=== PATIENT | male | born 1990 | race Caucasian/White ===

== ENCOUNTER 2016-08-14 15:31 | Inpatient (IN) | payer MEDICAID, OTHER ==
[~2016-08-14] VITALS: Ht 175.3 cm; Wt 69.8 kg
[~2016-08-14 15:31] MED LIST: ADDE10CA PO; ADDE10TA PO; ADDE20CA PO; ONDANSETRON HCL 4 MG/2 ML VIAL IV PUSH ONE; PROPOFOL 200 MG/20 ML AMP IV ONE; SERO300T2 PO
[2016-08-14 15:39] VITALS: BP 107/57; PULSE 75; RESP 19; TEMP 98.3; O2SAT 99
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
[2016-08-14 16:00] LABS: AUTOMATED NEUTROPHIL # 3.1 TH/MM3 (1.8-7.7); BASOPHIL % 0.6 % (0.0-2.0); EOSINOPHIL # 0.3 TH/MM3 (0-0.4); EOSINOPHIL % 4.1 % (0.0-4.0); HEMATOCRIT 34.6 % (39.0-51.0); HEMO FLAGS DIFF FINAL; LYMPH % 39.7 % (9.0-44.0); LYMPHOCYTE # 2.4 TH/MM3 (1.0-4.8); MEAN CELL VOLUME 89.4 FL (80.0-100.0); MEAN CORPUSCULAR HEMOGLOBIN 30.3 PG (27.0-34.0); MEAN CORPUSCULAR HGB CONC 33.8 % (32.0-36.0); MONO % 5.1 % (0.0-8.0); NEUT % 50.5 % (16.0-70.0); PLATELET COUNT 270 TH/MM3 (150-450); RED BLOOD COUNT 3.87 MIL/MM3 (4.50-5.90); RED CELL DISTRIBUTION WIDTH 12.7 % (11.6-17.2); WHITE BLOOD COUNT 6.1 TH/MM3 (4.0-11.0)
[2016-08-14] MEDS ORDERED: TETANUS/DIPHTHERIA TOXOID ADULT 0.5 ML VIAL IM ONE (16:00)
[2016-08-14 16:15] LABS: ANION GAP 7 MEQ/L (5-15); AST (GOT) 9 U/L (15-37); BLOOD UREA NITROGEN 12 MG/DL (7-18); CHLORIDE 109 MEQ/L (98-107); GLOMERULAR FILTRATION RATE 106 ML/MIN (>89); POTASSIUM 3.6 MEQ/L (3.5-5.1); SODIUM (NA) 142 MEQ/L (136-145)
[2016-08-14] MEDS ORDERED: LIDOCAINE 1%/EPINEPHrine 1:100,000 SOLN 20 ML VIAL INFIL ONE (16:15)
[2016-08-14 16:18] LABS: ALKALINE PHOSPHATASE 72 U/L (45-117); ALT (GPT) 12 U/L (12-78); TOTAL BILIRUBIN ADULT 0.5 MG/DL (0.2-1.0)
--- NOTE | 2016-08-14 16:49 | RADRPT ---
EXAM DATE/TIME: 08/14/2016 16:03 [place] COMPARISON: No previous studies available for comparison. INDICATIONS : Left wrist laceration. Patient cut his wrist on a metal lamp. MEDICAL HISTORY : None. SURGICAL HISTORY : None. ENCOUNTER: Initial ACUITY: 1 day PAIN SCORE: 10/10 LOCATION: Left wrist. FINDINGS: Two view examination of the left wrist demonstrates no acute bony abnormality. No radiopaque foreign body. Laceration present just proximal to wrist joint. CONCLUSION: 1. Soft tissue laceration. No acute bony abnormality. Humberto Mejia MD on August 14, 2016 at 16:47 Board Certified Radiologist. This report was verified electronically.
[2016-08-14 17:43] LABS: APTT (PATIENT) 23.3 SEC (24.3-30.1); INTERNATIONAL NORMALIZED RATIO 0.9 RATIO
[2016-08-14] MEDS ORDERED: cefTRIAXone INJ 1,000 MG in SODIUM CHLORIDE 0.9% INJ 100 ML IV ONE (17:45)
[2016-08-14 17:49] VITALS: BP_SYST 57; PULSE 69
[2016-08-14] MEDS ORDERED: SODIUM CHLOR 0.45% 1000 ML INJ 1,000 ML IV SCH (18:04)
[2016-08-14] MEDS ORDERED: MORPHINE SULFATE 4 MG/ML INJ IV PUSH PRN (18:15)
[2016-08-14] MEDS ORDERED: ACETAMINOPHEN/HYDROcodone 325 MG/5 MG TAB PO PRN (18:15)
[2016-08-14] MEDS ORDERED: NALOXONE HCL 0.4 MG/ML AMP IV PRN (18:15)
[2016-08-14] MEDS ORDERED: SODIUM CHLORIDE 0.9% FLUSH 5 ML FLUSH FLUSH PRN (18:15)
[2016-08-14] MEDS ORDERED: ONDANSETRON HCL 4 MG/2 ML VIAL IVP PRN (18:15)
[2016-08-14] MEDS ORDERED: HYDROmorphone HCL PF 2 MG/ML VIAL ONE (18:22)
[2016-08-14] MEDS ORDERED: METOCLOPRAMIDE HCL 10 MG/2 ML VIAL ONE (18:24)
[2016-08-14] MEDS ORDERED: HEPARIN SODIUM - IV 10,000 UNITS/10 ML VIAL ONE (18:32)
[2016-08-14] MEDS ORDERED: ceFAZolin INJ 1,000 MG VIAL ONE (18:32)
[2016-08-14] MEDS ORDERED: GELFOAM SIZE 100 ONE (18:32)
[2016-08-14] MEDS ORDERED: THROMBIN (TOPICAL) 5,000 UNIT VIAL ONE (18:32)
[2016-08-14] MEDS ORDERED: HEPARIN SODIUM - SQ 10,000 UNITS/ML VIAL ONE (18:32)
[2016-08-14] MEDS ORDERED: NITROGLYCERIN 1000 MCG/5 ML VIAL I-CORONARY ONE (18:43)
[2016-08-14] MEDS ORDERED: fentaNYL CITRATE 250 MCG/5 ML AMP ONE (19:52)
[2016-08-14] MEDS ORDERED: MIDAZOLAM HCL 2 MG/2 ML VIAL ONE (19:52)
--- NOTE | 2016-08-14 19:57 | MB ---
cc: SABINA WOODS MD DATE OF CONSULTATION 08/14/16 This is a gentleman who is 26 years old who presented to the emergency room with a self-inflicted wound to his left radial artery. A compressive dressing was put on by Dr. Dempsey in the emergency room and I was asked to see him. Evaluation today reveals a compressive dressing intact. The patient is lying in bed and comfortable. He has no neurological deficits in his hand, either to sensation or muscle strength. I have discussed the case with the patient and with Dr. Dempsey. He will be taken to the operating room emergently for repair of a lacerated left radial artery. Sabina Woods MD MPH/SA /7:42 PM /7:53 PM
[2016-08-14] MEDS ORDERED: SODIUM CHLORIDE 0.9% FLUSH 5 ML FLUSH FLUSH SCH (21:00)
[2016-08-14 21:18] VITALS: BP 99/52; PULSE 67; RESP 16; TEMP 96.5; O2SAT 100
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
--- NOTE | 2016-08-15 08:35 | MP ---
cc: LUÍS WOODS MD DATE OF SURGERY: 08/14/2016 PREOPERATIVE DIAGNOSIS: Lacerated radial artery, left POSTOPERATIVE DIAGNOSIS: Lacerated radial artery, left OPERATION: Repair lacerated left radial artery. SURGEON: Gage Woods MD. DISCOVERY GUIDE: PRAVEENA Hinkle. ANESTHESIA: General endotracheal anesthesia POSTOPERATIVE CONDITION: Stable. WHAT WAS DONE: The patient was taken to the operating room emergently. General endotracheal anesthesia was introduced. The left upper extremity was prepped and draped in sterile fashion. When this was accomplished time-out was performed. The site was reconfirmed. An incision was then made encompassing the incision to damage the radial artery. A very large hematoma was removed. Search was then made and the radial artery was eventually found. The damage done to the radial artery was then trimmed using a [place] scissors. The radial artery was freed up proximally and distally and there was noted to be excellent flow off the radial artery proximally and distally. An end-to-end anastomosis was then carried out after cobra heading both of the radial artery pieces. This was done with interrupted 6-0 Prolene. Prior to final closure all vessels were back bled, forward bled, and irrigated with heparinized saline solution. Nitroglycerin was used to prevent spasm and a 1 and 1.5 probe were used to dilate the artery. There was noted be excellent flow with the Doppler postoperatively and a palpable pulse in the radial artery distally. The wound was then closed with interrupted 3-0 nylon. A correct sponge, instrument, needle count was obtained and the patient was awakened, taken to the recovery room in satisfactory condition. Luís Woods MD MPH/LOIS /7:43 PM /8:28 AM
== END 2016-08-14 22:55 | DRG 909 ==
LOC: NEPC 15:31 → NEDA 17:54 → N06A 20:57
PROVIDERS: ADMIT Family Medicine; ATTEND Family Medicine
PROC: 03QC0ZZ Repair Left Radial Artery, Open Approach (ICD-10-PCS; principal; 2016-08-14 18:26)
DX: S65.112A Laceration of radial artery at wrist and hand level of left arm, initial encounter (principal); F31.9 Bipolar disorder, unspecified; F90.9 Attention-deficit hyperactivity disorder, unspecified type; Z91.5 Personal history of self-harm; X78.9XXA Intentional self-harm by unspecified sharp object, initial encounter; Y93.9 Activity, unspecified; Y92.9 Unspecified place or not applicable; Z72.0 Tobacco use
CPT/HCPCS: 73100; 80053; 85025; 85610; 85730; 90471; 90714; 96374; J0690; J0696; J1170; J1644; J2250; J2405; J2765; J3010

== ENCOUNTER 2016-08-14 22:00 | Inpatient (IN) | payer MEDICAID, OTHER ==
[~2016-08-14 22:00] MED LIST changes: -ONDANSETRON HCL 4 MG/2 ML VIAL IV PUSH ONE; -PROPOFOL 200 MG/20 ML AMP IV ONE
[2016-08-14 22:30] VITALS: BP 109/56; PULSE 65; RESP 18
[2016-08-14] MEDS: ACETAMINOPHEN/HYDROcodone 325 MG/5 MG TAB PO PRN (23:29)
[2016-08-14] MEDS ORDERED: ACETAMINOPHEN 325 MG TAB PO PRN (23:30)
[2016-08-14] MEDS ORDERED: MAGNESIUM HYDROXIDE SUSP 30 ML CUP PO PRN (23:30)
[2016-08-14] MEDS ORDERED: ALUMINUM/MAGNESIUM/SIMETH 30 ML CUP PO PRN (23:30)
[2016-08-14] MEDS ORDERED: diphenhydrAMINE HCL 50 MG/ML VIAL IM PRN (23:45)
[2016-08-14] MEDS ORDERED: hydrOXYzine HCL 50 MG TAB PO PRN (23:45)
[2016-08-14] MEDS ORDERED: diphenhydrAMINE HCL 50 MG CAP PO PRN (23:45)
[2016-08-15 05:49] VITALS: BP 107/57; PULSE 59; RESP 20; TEMP 98; O2SAT 97
[2016-08-15] MEDS: ACETAMINOPHEN/HYDROcodone 325 MG/5 MG TAB PO PRN (06:03)
[2016-08-15 08:46] VITALS: BP 107/57; PULSE 59; RESP 20; TEMP 98; O2SAT 97
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
[2016-08-15] MEDS ORDERED: NICOTINE 21 MG/24 HR PATCH T-DERMAL SCH (09:00)
[2016-08-15] MEDS ORDERED: REMOVE OLD NICOTINE PATCH T-DERMAL SCH (21:00)
== END 2016-08-15 10:05 | disposition home or self-care (01) | DRG 882 ==
LOC: H4EA 22:00
PROVIDERS: ADMIT Psychiatry & Neurology Psychiatry; ATTEND Psychiatry & Neurology Psychiatry
DX: F43.25 Adjustment disorder with mixed disturbance of emotions and conduct (principal); F90.9 Attention-deficit hyperactivity disorder, unspecified type

== ENCOUNTER 2017-08-25 11:08 | Emergency (ER) | payer MEDICAID, OTHER ==
[~2017-08-25] VITALS: Ht 175.3 cm; Wt 71.2 kg
[2017-08-25 11:12] VITALS: BP 126/71; PULSE 109; RESP 16; TEMP 98.7; O2SAT 97
--- NOTE | 2017-08-25 12:02 | PD ---
HPI Chief Complaint: Skin Problem Time Seen by Provider: 11:17 Travel History International Travel<30 days: No Contact w/Intl Traveler<30days: No Traveled to known affect area: No History of Present Illness HPI This is a 27-year-old male here with possible abscess to the right gluteal area 3 days. Patient reports he was possibly bit by an insect. He denies fever or chills. Denies history of IV drug use. The area has become increasingly more tender and causing discomfort when close rub against it. No alleviating factors. Symptoms severity is mild to moderate. PFSH Past Medical History ADHD: Yes Arthritis: No Bipolar Disorder: Yes Anxiety: Yes Depression: No Heart Rhythm Problems: No Cancer: No Cardiovascular Problems: No High Cholesterol: No Chest Pain: No Congestive Heart Failure: No Cerebrovascular Accident: No Developmental Delay: No Diabetes: No Diminished Hearing: No Endocrine: No Genitourinary: No Immune Disorder: No Musculoskeletal: No Neurologic: No Psychiatric: Yes (ADHD and bi polar) Reproductive: No Respiratory: No Immunizations Current: Yes Migraines: No Seizures: No Thyroid Disease: No Ulcer: No Past Surgical History Abdominal Surgery: No Appendectomy: No Cardiac Surgery: No Cholecystectomy: No Ear Surgery: Yes (TUBES IN EARS) Endocrine Surgery: No Eye Surgery: Yes Genitourinary Surgery: No Gynecologic Surgery: No Oral Surgery: No Thoracic Surgery: No Tonsillectomy: Yes (AND ADNOIDS) Tympanostomy Tube: Yes Other Surgery: No Social History Alcohol Use: Yes (LAST NIGHT) Tobacco Use: Yes Substance Use: Yes (poly substances- too many states patient per history report ) Allergies-Medications (Allergen,Severity, Reaction): Coded Allergies: No Known Allergies (Verified Adverse Reaction, Unknown, 08/25/17) Reported Meds & Prescriptions Reported Meds & Active Scripts Active No Active Prescriptions or Reported Medications Review of Systems Except as stated in HPI: all other systems reviewed are Neg General / Constitutional: No: Fever Physical Exam Narrative GENERAL: Alert and well-appearing 27 old male SKIN: Small pustule with surrounding erythema to the right mid gluteal. The area is mildly indurated without fluctuance. The pustule was unroofed and draining small amount of purulent drainage. HEAD: Normocephalic. EYES: No scleral icterus. No injection or drainage. NECK: Supple CARDIOVASCULAR: Regular rate and rhythm. No murmur RESPIRATORY: Breath sounds equal bilaterally. No accessory muscle use. GASTROINTESTINAL: Abdomen soft, non-tender, nondistended. MUSCULOSKELETAL: No cyanosis, or edema. BACK: Nontender without obvious deformity. No CVA tenderness. Data Data Last Documented VS Vital Signs Date Time Temp Pulse Resp B/P (MAP) Pulse Ox O2 Delivery O2 Flow Rate FiO2 08/25/17 11:12 98.7 109 16 126/71 (89) 97 MDM Medical Decision Making Medical Screen Exam Complete: Yes Emergency Medical Condition: Yes Differential Diagnosis Abscess, cellulitis, folliculitis Narrative Course 27-year-old male here with a small abscess to his right gluteal area. The area has a central pustule which was easily unroofed and expressed small amount of purulent drainage. He is nontoxic appearing. He'll be put on Bactrim instructed to apply warm compresses several times per day. Diagnosis Primary Impression: Abscess Referrals: Primary Care Physician Additional Instructions: Warm compresses several times per day. Antibiotics as directed. Scripts Sulfamethoxazole-Trimethoprim (Bactrim DS) 800-160 Mg Tab 1 TAB PO BID for Infection, #20 TAB 0 Refills Prov: Jane Hannon 08/25/17 Disposition: 01 DISCHARGE HOME Condition: Stable Jane Hannon Aug 25, 2017 12:02
[2017-08-25] MEDS ORDERED: BACT800T5 PO (12:09)
== END 2017-08-25 12:15 | disposition home or self-care (01) ==
LOC: PHEFT 11:08
DX: R10.9 Unspecified abdominal pain (principal); R50.9 Fever, unspecified; R11.2 Nausea with vomiting, unspecified; Z88.0 Allergy status to penicillin
CPT/HCPCS: 99283

== ENCOUNTER 2017-10-09 23:56 | Emergency (ER) | payer SELFPAY ==
[~2017-10-09] VITALS: Ht 175.3 cm; Wt 73.0 kg
[~2017-10-09 23:56] MED LIST changes: -ADDE10CA PO; -ADDE10TA PO; -ADDE20CA PO; +BACT800T5 PO; -SERO300T2 PO
[2017-10-10 00:11] VITALS: BP 108/60; PULSE 98; RESP 18; TEMP 98.1; O2SAT 99
[2017-10-10] MEDS ORDERED: LIDOCAINE 1%/EPINEPHrine 1:100,000 SOLN 20 ML VIAL INFIL ONE (00:30)
[2017-10-10] MEDS ORDERED: LIDOCAINE 1%/EPINEPHrine 1:100,000 SOLN 30 ML VIAL ONE (00:31)
[2017-10-10] MEDS ORDERED: DOXY100C PO (01:21)
--- NOTE | 2017-10-10 01:22 | PD ---
HPI . Skin lesion Chief Complaint: Skin Problem Time Seen by Provider: 00:27 Travel History International Travel<30 days: No Contact w/Intl Traveler<30days: No Traveled to known affect area: No History of Present Illness HPI This patient presents with an abscess on his right forearm which he states has been present for 4 days. It is getting progressively worse. He states that it did drain some today. He has not run any fever. Symptoms are moderate with no modifying factors. PFSH Past Medical History ADHD: Yes Arthritis: No Bipolar Disorder: Yes Anxiety: Yes Depression: No Heart Rhythm Problems: No Cancer: No Cardiovascular Problems: No High Cholesterol: No Chest Pain: No Congestive Heart Failure: No Cerebrovascular Accident: No Developmental Delay: No Diabetes: No Diminished Hearing: No Endocrine: No Genitourinary: No Immune Disorder: No Musculoskeletal: No Neurologic: No Psychiatric: Yes (ADHD and bi polar) Reproductive: No Respiratory: No Immunizations Current: Yes Migraines: No Seizures: No Thyroid Disease: No Ulcer: No Tetanus Vaccination: < 5 Years Influenza Vaccination: No Past Surgical History Abdominal Surgery: No Appendectomy: No Cardiac Surgery: No Cholecystectomy: No Ear Surgery: Yes (TUBES IN EARS) Endocrine Surgery: No Eye Surgery: Yes Genitourinary Surgery: No Gynecologic Surgery: No Oral Surgery: No Thoracic Surgery: No Tonsillectomy: Yes (AND ADNOIDS) Tympanostomy Tube: Yes Other Surgery: No Social History Alcohol Use: Yes Tobacco Use: No Substance Use: Yes (poly substances- too many states patient per history report ) Allergies-Medications (Allergen,Severity, Reaction): Coded Allergies: No Known Allergies (Verified Adverse Reaction, Unknown, 10/10/17) Reported Meds & Prescriptions Reported Meds & Active Scripts Active Doxycycline Hyclate 100 Mg Cap 100 Mg PO BID Bactrim DS (Sulfamethoxazole-Trimethoprim) 800-160 Mg Tab 1 Tab PO BID Review of Systems Except as stated in HPI: all other systems reviewed are Neg General / Constitutional: No: Fever, Chills Skin: Positive Lesions Physical Exam Narrative GENERAL: Awake and alert and in no acute distress. SKIN: Warm and dry. Large abscess on the right forearm with fluctuance. HEAD: Normocephalic/atraumatic. EYES: Pupils are equal. Extraocular movements are intact. NECK: Normal range of motion. CARDIOVASCULAR: Regular rate and rhythm. RESPIRATORY: Nonlabored respirations. MUSCULOSKELETAL: Atraumatic. NEUROLOGICAL: Nonfocal. PSYCHIATRIC: Appropriate mood and affect. Data Data Last Documented VS Vital Signs Date Time Temp Pulse Resp B/P (MAP) Pulse Ox O2 Delivery O2 Flow Rate FiO2 10/10/17 00:11 98.1 98 18 108/60 (76) 99 Orders Orders Lidocai-Epi 1%-1:100,000 Inj (Xylocaine- (10/10/17 00:30) Lidocai-Epi 1%-1:100,000 Inj (Xylocaine- (10/10/17 00:31) MDM Medical Decision Making Medical Screen Exam Complete: Yes Emergency Medical Condition: Yes Medical Record Reviewed: Yes (This patient was seen here on August 25 with an abscess in the gluteal area. It was a very small abscess. It was unroofed and drained easily. He was discharged with prescription for Bactrim) Differential Diagnosis My differential diagnosis closed but is not limited to abscess, cyst, lipoma Narrative Course This patient presents with an abscess on his right forearm. It will be drained. This patient is not cooperating for I&D. He will probably leave [place]. He has recently been on Bactrim for another abscess. I will give him a prescription for doxycycline. His girlfriend is trying to talk with him about allowing the I &D. Diagnosis Primary Impression: Abscess Med/Other Pt SpecificInfo: Prescription(s) given Scripts Doxycycline Hyclate (Doxycycline Hyclate) 100 Mg Cap 100 MG PO BID for Infection, #20 CAP 0 Refills Prov: Tika Vera MD 10/10/17 Disposition: 07 AGAINST MEDICAL ADVICE Tika Vera MD Oct 10, 2017 01:22
== END 2017-10-10 01:30 | disposition left against medical advice (07) ==
LOC: NEPE 23:56
DX: L02.413 Cutaneous abscess of right upper limb (principal); F90.9 Attention-deficit hyperactivity disorder, unspecified type; F41.9 Anxiety disorder, unspecified; F31.9 Bipolar disorder, unspecified; Z53.20 Procedure and treatment not carried out because of patient's decision for unspecified reasons
CPT/HCPCS: 99283

== ENCOUNTER 2017-12-13 23:09 | Emergency (ER) | payer SELFPAY ==
[~2017-12-13 23:09] MED LIST changes: +DOXY100C PO
[2017-12-13 23:18] VITALS: BP 124/64; PULSE 87; RESP 16; TEMP 98.6; O2SAT 95
[2017-12-13 23:48] VITALS: BP 106/56; PULSE 102; RESP 19; O2SAT 95
--- NOTE | 2017-12-13 23:53 | PD ---
HPI Chief Complaint: Alcohol/Drug Intoxication Time Seen by Provider: 23:43 Travel History International Travel<30 days: No Contact w/Intl Traveler<30days: No Traveled to known affect area: No History of Present Illness HPI 27-year-old male presents via EMS for evaluation of drug use. Reportedly the patient was injected methamphetamines today. He was found laying down in a [employer] parking lot. His current complaint is homelessness. Symptom onset unknown. Symptoms are moderate, aggravated by lack of housing and drug use with no alleviating factors. He denies any injuries. He denies any other drug use. He has no other complaints at this time. PFSH Past Medical History ADHD: Yes Arthritis: No Bipolar Disorder: Yes Anxiety: Yes Depression: No Heart Rhythm Problems: No Cancer: No Cardiovascular Problems: No High Cholesterol: No Chest Pain: No Congestive Heart Failure: No Cerebrovascular Accident: No Developmental Delay: No Diabetes: No Diminished Hearing: No Endocrine: No Gastrointestinal Disorders: No Genitourinary: No Hypertension: No Immune Disorder: No Musculoskeletal: No Neurologic: No Psychiatric: Yes (ADHD and bi polar) Reproductive: No Respiratory: No Immunizations Current: Yes Migraines: No Seizures: No Thyroid Disease: No Ulcer: No Past Surgical History Abdominal Surgery: No Appendectomy: No Cardiac Surgery: No Cholecystectomy: No Ear Surgery: Yes (TUBES IN EARS) Endocrine Surgery: No Eye Surgery: Yes Genitourinary Surgery: No Gynecologic Surgery: No Neurologic Surgery: No Oral Surgery: No Thoracic Surgery: No Tonsillectomy: Yes (ADENOIDECTOMY) Tympanostomy Tube: Yes Other Surgery: No Social History Alcohol Use: Yes Tobacco Use: Yes Substance Use: Yes (poly substances- too many states patient per history report ) Allergies-Medications (Allergen,Severity, Reaction): Coded Allergies: No Known Allergies (Verified Adverse Reaction, Unknown, 10/10/17) Reported Meds & Prescriptions Reported Meds & Active Scripts Active Review of Systems Except as stated in HPI: all other systems reviewed are Neg Physical Exam Narrative GENERAL: Somewhat disheveled male who is in no acute distress. He is responding to commands appropriately. SKIN: Warm and dry. HEAD: Atraumatic. Normocephalic. EYES: Pupils equal and round. No scleral icterus. No injection or drainage. ENT: No nasal bleeding or discharge. Mucous membranes pink and moist. NECK: Trachea midline. No JVD. CARDIOVASCULAR: Regular rate and rhythm. No murmur appreciated. RESPIRATORY: No accessory muscle use. Clear to auscultation. Breath sounds equal bilaterally. GASTROINTESTINAL: Abdomen soft, non-tender, nondistended. Hepatic and splenic margins not palpable. MUSCULOSKELETAL: No obvious deformities. No clubbing. No cyanosis. No edema. NEUROLOGICAL: No obvious cranial nerve deficits. Motor grossly within normal limits. Drowsy but arousable. Data Data Last Documented VS Vital Signs Date Time Temp Pulse Resp B/P (MAP) Pulse Ox O2 Delivery O2 Flow Rate FiO2 12/13/17 23:48 102 19 106/56 (73) 95 Room Air 12/13/17 23:18 98.6 MDM Medical Decision Making Medical Screen Exam Complete: Yes Emergency Medical Condition: Yes Medical Record Reviewed: Yes Differential Diagnosis Methamphetamine abuse, polysubstance abuse, homelessness Narrative Course The patient remain here until he is sober and then he will be discharged. Diagnosis Primary Impression: Methamphetamine abuse Walter Alan Dec 13, 2017 23:53
[2017-12-14 06:08] VITALS: BP 95/50
== END 2017-12-14 06:19 | disposition home or self-care (01) ==
LOC: NEPD 23:09
DX: F15.10 Other stimulant abuse, uncomplicated (principal); F90.9 Attention-deficit hyperactivity disorder, unspecified type; F31.9 Bipolar disorder, unspecified; F41.9 Anxiety disorder, unspecified; Z72.0 Tobacco use
CPT/HCPCS: 99283

== ENCOUNTER 2018-03-08 19:40 | Observation (INO) ==
[2018-03-08] MEDS ORDERED: MethylPREDNISolone Sod Succinate Inj 125 MG/2 ML Vial IV.PUSH ONE (19:43)
--- NOTE | 2018-03-08 19:53 | ED ---
HPI General Chief complaint: Respiratory Symptoms Stated complaint: SOB Time Seen by Provider: 03/08/18 19:43 Source: patient and RN notes reviewed Mode of arrival: wheelchair History of Present Illness HPI narrative: 27yM presenting with respiratory distress. The patient states that he's had "pneumonia" for the past month but has not been treated. Approximately 2 hours prior to arrival, he woke up with chest tightness and shortness of breath. Denies fever but admits to productive cough and dyspnea, denies nausea, vomiting, abdominal pain, or rash. Family history non-contributory. (+) smoking history, no known history of asthma or COPD. Related Data Home Medications Medication Instructions Recorded Confirmed No Known Home Medications 03/08/18 03/08/18 Allergies Allergy/AdvReac Type Severity Reaction Status Date / Time No Known Allergies Allergy Unverified 03/08/18 19:46 Review of Systems ROS: all other systems reviewed are negative Constitutional Denies fever(s) ENT Denies nasal congestion Cardiovascular Denies chest pain Respiratory Reports chest congestion and Reports cough Gastrointestinal Denies nausea Genitourinary Denies dysuria Musculoskeletal Denies back pain Neurologic Denies confusion Psychiatric Denies confusion PMFSH History History Provided By: Patient Medical History Medical History Patient denies medical problems (Acute) Surgical History Surgical History No history of previous surgery (Acute) Social History Social History Substance History: Active Abuse Second Hand Smoke Exposure: Yes Smoking Status: Current every day smoker Tobacco Type: Cigarettes How Often Do You Have a Drink Containing Alcohol: Never Recent Travel in [facility] within the Last 8 Weeks: No Recent Out of Country Travel within the Last 8 Weeks: No Exam Const General: no acute distress and ill appearing [facility] Head: normocephalic and atraumatic Face and sinus: normal facial exam Eyes General: appearance normal, both eyes and all related structures Pupils: PERRL Chest Chest: normal inspection of the chest Resp Other: Increased work of breathing, speaking in complete sentences, O2 sats 70% on room air Full-field expiratory wheezing bilaterally Cardio Rate: regular rate Rhythm: regular rhythm GI Inspection: non-distended Palpation: soft and nontender Skin General: no rashes or lesions noted Neuro General: alert, awake, oriented x3 and no focal motor deficits Psych Affect: normal affect Course Initial Documented Vital Signs Temperature 97.2 F L 03/08/18 19:41 Pulse Rate 88 03/08/18 19:41 Respiratory Rate 22 03/08/18 19:41 Blood Pressure 166/83 H 03/08/18 19:41 Pulse Oximetry 91 L 03/08/18 19:41 Last Documented Vital Signs Temperature 97.2 F L 03/08/18 19:41 Pulse Rate 94 H 03/08/18 20:05 Respiratory Rate 20 03/08/18 20:05 Blood Pressure 166/83 H 03/08/18 19:41 Pulse Oximetry 98 03/08/18 20:27 Medical Decision Making [facility] Narrative Medical decision making narrative: Assessment: 27yM presenting with dyspnea and hypoxia Plan: EKG and monitor Nebs and steroids Labs CXR Addendum: CXR shows no infiltrate, patient still has O2 sats of 90-91% on 2L NC. No longer wheezing after 3 duonebs and steroids. Refused ABG. This patient cannot go home as he has persistent room-air hypoxia; he will need continued monitoring, nebs, and steroids. Patient understands and agrees with plan. Case discussed with Dr. Fernandez of [facility]. Medical Screen Exam Complete: Yes Emergency Medical Condition: Yes Differential Diagnosis Differential Diagnosis: Differential diagnosis includes, but is not limited to: pneumonia, pleural effusion, pulmonary edema, arrhythmia Lab Data Lab results reviewed: Yes I reviewed the patient's lab results. Result diagrams: 03/08/18 19:54 03/08/18 19:54 Lab Results 03/08/18 03/08/18 Range/Units 19:54 19:54 WBC 10.0 (4.0-11.0) th/mm3 RBC 4.80 (4.50-5.90) mil/mm3 Hgb 14.2 (13.0-17.0) gm/dL Hct 41.5 (39.0-51.0) % MCV 86.4 (80.0-100.0) fL MCH 29.5 (27.0-34.0) pg MCHC 34.2 (32.0-36.0) % RDW 13.9 (11.6-17.2) % Plt Count 286 (150-450) th/mm3 MPV 6.5 L (7.0-11.0) fL Neut % (Auto) 58.8 (16.0-70.0) % Lymph % (Auto) 22.9 (9.0-44.0) % Kendall % (Auto) 6.0 (0.0-8.0) % Eos % (Auto) 11.4 H (0.0-4.0) % Baso % (Auto) 0.9 (0.0-2.0) % Neut # (Auto) 5.9 (1.8-7.7) th/mm3 Lymph # (Auto) 2.3 (1.0-4.8) th/mm3 Kendall # (Auto) 0.6 (0.0-0.9) th/mm3 Eos # (Auto) 1.1 H (0.0-0.4) th/mm3 Baso # (Auto) 0.1 (0.0-0.2) th/mm3 WBC Differential . Differential Comment Auto diff final Sodium 138 (136-145) meq/L Potassium 5.3 H (3.5-5.1) meq/L Chloride 100 (98-107) meq/L Carbon Dioxide 28.7 (21.0-32.0) meq/L Anion Gap 9 (5-15) meq/L BUN 14 (7-18) mg/dL Creatinine 0.77 (0.60-1.30) mg/dL Estimated GFR Greater than 89 (>89) mL/min Random Glucose 83 (74-106) mg/dL Calcium 9.0 (8.5-10.1) mg/dL Total Bilirubin 0.6 (0.2-1.0) mg/dL AST 71 H (15-37) U/L ALT 127 H (12-78) U/L Alkaline Phosphatase 96 (45-117) U/L Total Protein 7.5 (6.4-8.2) g/dL Albumin 3.7 (3.4-5.0) g/dL Imaging Data Radiologist's impression: Chest X-Ray 03/08/18 19:43 CONCLUSION: No acute cardiopulmonary disease. There is no evidence of pneumonia. ECG Data Attestation: I personally reviewed and interpreted this ECG as follows: Interpretation: Rate: 88 BPM Rhythm: Sinus Renovo: Normal Intervals: Normal intervals, no blocks, QTc 385 ms Q waves: None T waves: Inverted in aVL ST segments: No elevations or depressions Impression: Non-specific EKG, no changes as compared to EKG from 10/28/2007. Discharge Plan Physicians Team ED Provider: May Hernández Primary Care Provider: Primary Care Juani,No Rxs /Orders / Referrals /Forms Prescriptions: No Action No Known Home Medications RF: 0 Status ED Status: With Doctor
--- NOTE | 2018-03-08 20:19 | XR ---
EXAM DATE: 03/08/2018 8:15 PM EDT AGE/SEX: 27 years / Male INDICATIONS: Pneumonia. CLINICAL DATA: This is the patient's initial encounter. Patient reports that signs and symptoms have been present for 1 day and indicates a pain score of Nonresponsive. MEDICAL/SURGICAL HISTORY: Non-responsive. Non-responsive. COMPARISON: No prior exams available for comparison. FINDINGS: A single AP view of the chest demonstrates the lungs to be symmetrically aerated without evidence of mass, infiltrate or effusion. The cardiomediastinal contours are unremarkable. Osseous structures a re intact. CONCLUSION: No acute cardiopulmonary disease. There is no evidence of pneumonia. Electronically signed by: Lusí De La Fuente MD 03/08/2018 8:17 PM EDT
[2018-03-08 20:21] LABS: Baso # (Auto) 0.1 th/mm3 (0.0-0.2); Baso % (Auto) 0.9 % (0.0-2.0); Eos # (Auto) 1.1 th/mm3 (0.0-0.4); Eos % (Auto) 11.4 % (0.0-4.0); Hematocrit 41.5 % (39.0-51.0); Hemoglobin 14.2 gm/dL (13.0-17.0); Lymph # (Auto) 2.3 th/mm3 (1.0-4.8); Lymph % (Auto) 22.9 % (9.0-44.0); Mean Corpuscular HGB Conc 34.2 % (32.0-36.0); Mean Corpuscular Hemoglobin 29.5 pg (27.0-34.0); Mean Corpuscular Volume 86.4 fL (80.0-100.0); Mean Platelet Volume 6.5 fL (7.0-11.0); Mono # (Auto) 0.6 th/mm3 (0.0-0.9); Neut # (Auto) 5.9 th/mm3 (1.8-7.7); Neut % (Auto) 58.8 % (16.0-70.0); Platelet Count 286 th/mm3 (150-450); Red Cell Distribution Width 13.9 % (11.6-17.2)
[2018-03-08 20:36] LABS: Albumin 3.7 g/dL (3.4-5.0); Anion Gap 9 meq/L (5-15); Aspartate Aminotransferase 71 U/L (15-37); Blood Urea Nitrogen 14 mg/dL (7-18); Carbon Dioxide 28.7 meq/L (21.0-32.0); Chloride 100 meq/L (98-107); Glomerular Filtration Rate Greater Than 89 mL/min (>89); Glucose,Random 83 mg/dL (74-106); Potassium 5.3 meq/L (3.5-5.1); Sodium 138 meq/L (136-145)
[2018-03-08 20:39] LABS: Alanine Aminotransferase 127 U/L (12-78); Alkaline Phosphatase 96 U/L (45-117); Total Protein 7.5 g/dL (6.4-8.2)
[2018-03-08] MEDS ORDERED: Sod Chloride 0.9% Inj 1,000 ML IV.SIG ONE (21:03)
[2018-03-08] MEDS ORDERED: Acetaminophen 325 MG Tablet PO PRN (21:58)
[2018-03-08] MEDS ORDERED: Bisacodyl 10 MG Supp RECTAL PRN (21:58)
--- NOTE | 2018-03-08 22:07 | P.HP ---
History of Present Illness Service: [facility] Primary Care Physician: No Primary Care Physician History of Present Illness: 27-year-old male with no significant past medical history presents to the emergency department for the evaluation of shortness of breath. The patient reports that he has had "pneumonia" for the past month but has not been treated. Approximately 3 hours ago, the patient woke up with chest tightness and shortness of breath. He denies any fevers but admits to a productive cough and shortness of breath. He denies any chest pain or pressure. No abdominal pain. No nausea/vomiting/diarrhea. The patient denies any history of COPD or asthma. Chest x-ray negative for acute process. Review of Systems All other systems reviewed negative except as stated in HPI [facility] - History History Provided By: Patient - Medical History Medical History: Medical History (Last Reviewed 03/08/18 @ 22:03 by Ruby Fernandez MD) Patient denies medical problems - Surgical History Surgical History: Surgical History (Last Reviewed 03/08/18 @ 22:03 by Ruby Fernandez MD) No history of previous surgery - Family History Family History: Family History (Last Updated 03/08/18 @ 22:03 by Ruby Fernandez MD) Other Family history normal - Tobacco History Second Hand Smoke Exposure: Yes Tobacco Use In Past 30 Days: Yes Smoking Status: Current every day smoker Tobacco Type: Cigarettes - Alcohol History How Often Do You Have a Drink Containing Alcohol: Never - Substance Use History Substance History: Active Abuse - Travel History Recent Travel in the [place] Within the Last 8 Weeks: No Recent Travel Out of the Country Within the Last 8 Weeks: No - Immunization History Tetanus Immunization: <5 Years Hx Influenza Vaccine This Season: Yes Medications and Allergies Active Medications: Active Medications Acetaminophen (Tylenol) 650 mg PO Q4H PRN PRN Reason: Temp > 100.4 Al Hydroxide/Mg Hydroxide (Milk Of Magnesia Liq) 30 ml PO Q12H PRN PRN Reason: Mild Constipation Albuterol (Duoneb Neb (Baldemar)) 1 ampul NEB Q4HR NEB BALDEMAR Bisacodyl (Dulcolax Supp) 10 mg RECTAL DAILY PRN PRN Reason: SEVERE CONSITIPATION Lactulose (Lactulose Liq) 30 ml PO DAILY PRN PRN Reason: SEVERE CONSITIPATION Methylprednisolone Sodium Succinate (Solumedrol Inj) 60 mg IV.PUSH Q6H BALDEMAR Allergies Allergy/AdvReac Type Severity Reaction Status Date / Time No Known Allergies Allergy Unverified 03/08/18 19:46 Home Medications Medication Instructions Recorded Confirmed Type No Known Home Medications 03/08/18 03/08/18 History Exam Vital signs: Vital Signs 03/08/18 19:41 03/08/18 19:44 03/08/18 19:58 Temperature 97.2 F L Pulse Rate 88 94 H 96 H Respiratory Rate 22 28 H 22 Blood Pressure 166/83 H Pulse Oximetry 91 L 03/08/18 20:05 03/08/18 20:08 03/08/18 20:27 Temperature Pulse Rate 94 H Respiratory Rate 20 Blood Pressure Pulse Oximetry 100 98 Intake & Output 03/08/18 03/08/18 03/09/18 06:59 18:59 06:59 Weight 68.039 kg Narrative: Gen.: No acute distress Head: Normocephalic. Atraumatic. EENT: Pupils equal round and reactive to light. Nose without drainage. Airway intact. Throat without injection. Cardiovascular: Regular rate and rhythm. No murmurs, rubs or gallops. Respiratory: Lungs clear to auscultation bilaterally. No wheezes or rhonchi. Abdomen: Soft, nontender, nondistended. No peritoneal signs. Musculoskeletal: No gross deformities. No edema. Skin: No obvious rashes or erythema. Neuro: Sensory and motor grossly intact. Cranial nerves II through XII grossly intact. Results - Labs CBC & Chem 7: 03/08/18 19:54 03/08/18 19:54 Labs: Laboratory Results - last 24 hr 03/08/18 03/08/18 19:54 19:54 WBC 10.0 RBC 4.80 Hgb 14.2 Hct 41.5 MCV 86.4 MCH 29.5 MCHC 34.2 RDW 13.9 Plt Count 286 MPV 6.5 L Neut % (Auto) 58.8 Lymph % (Auto) 22.9 Hudspeth % (Auto) 6.0 Eos % (Auto) 11.4 H Baso % (Auto) 0.9 Neut # (Auto) 5.9 Lymph # (Auto) 2.3 [place]udspeth # (Auto) 0.6 Eos # (Auto) 1.1 H Baso # (Auto) 0.1 WBC Differential . Differential Comment Auto diff final Sodium 138 Potassium 5.3 H Chloride 100 Carbon Dioxide 28.7 Anion Gap 9 BUN 14 Creatinine 0.77 Estimated GFR Greater than 89 Random Glucose 83 Calcium 9.0 Total Bilirubin 0.6 AST 71 H ALT 127 H Alkaline Phosphatase 96 Total Protein 7.5 Albumin 3.7 - Imaging Impressions Chest X-Ray 03/08/18 19:43 CONCLUSION: No acute cardiopulmonary disease. There is no evidence of pneumonia. Caprini VTE Risk Assessment Caprini VTE Risk Assessment: No/Low Risk (score <= 1) Caprini Risk Assessment Model: Point Value = 1 Point Value = 2 Point Value = 3 Point Value = 5 Age 41-60 Minor surgery BMI > 25 kg/m2 Swollen legs Varicose veins or History of unexplained or recurrent spontaneous Oral contraceptives or hormone replacement Sepsis (< 1 month) Serious lung disease, including pneumonia (< 1 month) Abnormal pulmonary function Acute myocardial infarction Congestive heart failure (< 1 month) History of inflammatory bowel disease Medical patient at bed rest Age 61-74 Arthroscopic surgery Major open surgery (> 45 min) Laparoscopic surgery (> 45 min) Malignancy Confined to bed (> 72 hours) Immobilizing plaster cast Central venous access Age >= 75 History of VTE Family history of VTE Factor V Leiden Prothrombin [id number] Lupus anticoagulant Anticardiolipin antibodies Elevated serum homocysteine Heparin-induced thrombocytopenia Other congenital or acquired thrombophilia Stroke (< 1 month) Elective arthroplasty Hip, pelvis, or leg fracture Acute spinal cord injury (< 1 month) Prophylaxis Regimen: Total Risk Factor Score Risk Level Prophylaxis Regimen 0-1 Low Early ambulation 2 Moderate Order ONE of the following: *Sequential Compression Device (SCD) *Heparin 5000 units SQ BID 3-4 Higher Order ONE of the following medications: *Heparin 5000 units SQ TID *Enoxaparin/Lovenox 40 mg SQ daily (WT < 150 kg, CrCl > 30 mL/min) *Enoxaparin/Lovenox 30 mg SQ daily (WT < 150 kg, CrCl > 10-29 mL/min) *Enoxaparin/Lovenox 30 mg SQ BID (WT < 150 kg, CrCl > 30 mL/min) AND/OR *Sequential Compression Device (SCD) 5 or more Highest Order ONE of the following medications: *Heparin 5000 units SQ TID (Preferred with Epidurals) *Enoxaparin/Lovenox 40 mg SQ daily (WT < 150 kg, CrCl > 30 mL/min) *Enoxaparin/Lovenox 30 mg SQ daily (WT < 150 kg, CrCl > 10-29 mL/min) *Enoxaparin/Lovenox 30 mg SQ BID (WT < 150 kg, CrCl > 30 mL/min) AND *Sequential Compression Device (SCD) Assessment and Plan - Plan Assessment/plan: 1. Hypoxia/shortness of breath Per EMS report, the patient was satting in the 70s on their arrival Status post duo nebs On arrival, patient had diffuse inspiratory/expiratory wheezing which has since resolved Denies history of COPD but does smoke Chest x-ray negative for acute process, personally reviewed Patient refused ABG Supplemental oxygen as needed IV steroids Duo nebs 2. Transaminitis New from 2017 Hepatitis profile pending Monitor LFTs FEN Regular diet Electrolytes: monitor and replete prn
[2018-03-09 01:14] LABS: Hepatitits B Surface Antigen Nonreactive (Nonreactive)
[2018-03-09 01:35] LABS: Hepatitis A IgM Antibody Nonreactive (Nonreactive)
[2018-03-09 05:12] LABS: Amphetamine Screen,Urine Pos (Neg); Barbiturate Screen,Urine Neg (Neg); Cannabinoid Screen,Urine Neg (Neg); Cocaine Screen,Urine Neg (Neg)
[2018-03-09 05:17] LABS: Opiate Screen,Urine Pos (Neg)
[2018-03-09] MEDS ORDERED: MethylPREDNISolone Sod Succinate Inj 40 MG/ML Vial IV.PUSH SCH (06:00)
[2018-03-09] MEDS ORDERED: Senna/Docusate Sodium 8.6/50 MG Tablet PO SCH (09:00)
[2018-03-09 11:30] VITALS: O2SAT 90
[2018-03-09 11:48] LABS: Alanine Aminotransferase 107 U/L (12-78); Alkaline Phosphatase 78 U/L (45-117); Anion Gap 10 meq/L (5-15); Aspartate Aminotransferase 42 U/L (15-37); Blood Urea Nitrogen 14 mg/dL (7-18); Calcium 8.4 mg/dL (8.5-10.1); Carbon Dioxide 26.4 meq/L (21.0-32.0); Chloride 104 meq/L (98-107); Glomerular Filtration Rate Greater Than 89 mL/min (>89); Glucose,Random 175 mg/dL (74-106); Magnesium 1.9 mg/dL (1.5-2.5); Sodium 140 meq/L (136-145); Total Protein 6.6 g/dL (6.4-8.2)
[2018-03-09 11:59] VITALS: BP 97/53; PULSE 78; RESP 20; TEMP 98.2
[2018-03-09 14:05] LABS: Baso % (Auto) 0.5 % (0.0-2.0); Hematocrit 38.7 % (39.0-51.0); Hemoglobin 12.9 gm/dL (13.0-17.0); Lymph # (Auto) 0.7 th/mm3 (1.0-4.8); Lymph % (Auto) 9.6 % (9.0-44.0); Mean Corpuscular HGB Conc 33.3 % (32.0-36.0); Mean Corpuscular Hemoglobin 29.4 pg (27.0-34.0); Mean Corpuscular Volume 88.3 fL (80.0-100.0); Mean Platelet Volume 6.9 fL (7.0-11.0); Mono % (Auto) 0.6 % (0.0-8.0); Neut # (Auto) 6.1 th/mm3 (1.8-7.7); Neut % (Auto) 89.3 % (16.0-70.0); Platelet Count 326 th/mm3 (150-450); Red Blood Count 4.39 mil/mm3 (4.50-5.90); Red Cell Distribution Width 13.9 % (11.6-17.2); White Blood Count 6.9 th/mm3 (4.0-11.0)
--- NOTE | 2018-03-09 18:55 | ECG ---
Date Performed: 03/08/2018 Time Performed: 19:44:31 PTAGE: 27 years EKG: Sinus rhythm INDETERMINATE AXIS LEFT POSTERIOR FASCICULAR BLOCK ABNORMAL ECG PREVIOUS TRACING : 10/28/2007 21.18 Since the previous tracing, no significant change noted DOCTOR: Misael Blackmon Interpretating Date/Time 03/09/2018 18:51:06
== END 2018-03-09 13:00 | disposition left against medical advice (07) ==
LOC: NEDA 19:40 → NEPE 19:40 → NEDA 23:29 → NEPFCDU 23:31
PROVIDERS: ADMIT Hospitalist; ATTEND Hospitalist